=== PATIENT | male | born 1960 | race Caucasian/White ===

== ENCOUNTER 2021-04-26 04:24 | Day surgery (SDC) | payer OTHER ==
[2021-04-23 14:56] VITALS: BMI 28.2
[2021-04-26] MEDS ORDERED: ACETAMINOPHEN 1000 MG/100 ML VIAL (NON FORMULARY) IVPB ONE (07:18)
[2021-04-26] MEDS ORDERED: PROPOFOL 20 ML ONE ×3 (07:19→07:21)
[2021-04-26] MEDS ORDERED: MIDAZOLAM HCL 2 MG/2 ML SINGLE DOSE VIAL ONE (07:20)
[2021-04-26] MEDS ORDERED: IBUPROFEN 800 MG/8 ML IJ IVPB SCH (07:30)
[2021-04-26] MEDS ORDERED: ceFAZolin SODIUM 1 GM VIAL IVPB ONE (07:45)
[2021-04-26] MEDS ORDERED: PROMETHAZINE HCL 25 MG/1 ML VIAL IVPB PRN (08:23)
[2021-04-26] MEDS ORDERED: LACTATED RINGERS SOLUTION 1,000 ML IV SCH (08:30)
[2021-04-26] MEDS ORDERED: ACETAMINOPHEN INJECTION 100 ML IVPB ONE (08:55)
[2021-04-26 12:58] VITALS: TEMP 97.6
[2021-04-26 13:09] VITALS: BP 124/88; PULSE 64
== END 2021-04-26 11:20 | disposition home or self-care (01) ==
LOC: JASU-SURG 04:24
PROVIDERS: ATTEND Urology
PROC: 0T7D8DZ Dilation of Urethra with Intraluminal Device, Via Natural or Artificial Opening Endoscopic (ICD-10-PCS; principal; 2021-04-26 07:30)
DX: N40.1 Benign prostatic hyperplasia with lower urinary tract symptoms (principal); R35.1 Nocturia; R39.12 Poor urinary stream
CPT/HCPCS: 94760; J0131